=== PATIENT | female | born 1990 | race Caucasian/White ===

== ENCOUNTER 2017-09-15 10:00 | Inpatient (IN) | payer OTHER ==
[~2017-09-15] VITALS: Ht 175.3 cm; Wt 121.7 kg
[2017-09-15 10:28] VITALS: Ht 175.3 cm; Wt 121.7 kg
[2017-09-15] MEDS ORDERED: OXYTOCIN 30 UNITS/LR 500 ML IV SCH ×2 (10:30)
[2017-09-15] MEDS ORDERED: IBUPROFEN 600 MG TAB PO PRN (10:30)
[2017-09-15] MEDS ORDERED: LIDOCAINE 1% (MPF) 30 ML INJ INJ PRN (10:30)
[2017-09-15] MEDS ORDERED: HYDROCODONE/APAP (5/325) TAB PO PRN (10:30)
[2017-09-15] MEDS ORDERED: BUTORPHANOL 2 MG INJ IV PRN (10:30)
[2017-09-15] MEDS ORDERED: CARBOPROST 250 MCG INJ IM PRN (10:30)
[2017-09-15] MEDS ORDERED: METHYLERGONOVINE 0.2 MG INJ IM PRN (10:30)
[2017-09-15] MEDS ORDERED: OXYTOCIN 30 UNITS/LR 500 ML IV PRN (10:30)
[2017-09-15] MEDS ORDERED: MISOPROSTOL 200 MCG TAB PR PRN (10:30)
[2017-09-15 10:37] VITALS: BP 120/83; PULSE 64; RESP 20
[2017-09-15] MEDS: LACTATED RINGER'S 1,000 ML IV SCH ×2 (11:06→19:50)
[2017-09-15] MEDS ORDERED: MINERAL OIL LIGHT 10 ML VIAL TOP PRN (12:00)
[2017-09-15] MEDS ORDERED: LACTATED RINGER'S 1,000 ML IV PRN (12:00)
--- NOTE | 2017-09-15 12:30 | RADRPT ---
PROCEDURE: US OB. CLINICAL INDICATION: Size and dates , macrosomia TECHNIQUE: Multiple sonographic images of the pelvis and gravid uterus were obtained. The images were reviewed on a PACS workstation. COMPARISON: No prior studies are available for comparison. FINDINGS: There is a single viable intrauterine gestation. Cardiac activity is present with 144 beats per min matilda. There is a vertex presentation. The placenta is left lateral. There is no evidence for an abruption or placenta previa. Measurements were made in order to determine age. The results are as follows: BPD =9.6 cm HC =33 cm AC =35.2 cm FL =7.4 cm Estimated gestational age of approximately 38 weeks and 3 days based on ultrasound measurements. Clinical age: 40 weeks and 0 days. The estimated date of delivery is 09/26/17, based on ultrasound measurements. The EFW = 3568 g, 45.6%, based on LMP age. RPTAT: AA IMPRESSION: Single viable intrauterine gestation of approximately 38 weeks and 3 days based on ultrasound measu rements. .Gulshan Pruitt MD, Date Time Electronically viewed and signed by .Gulshan Pruitt MD, MD on 09/15/2017 12:30 .S/
[2017-09-15] MEDS: OXYTOCIN 30 UNITS/LR 500 ML IV SCH (13:01)
--- NOTE | 2017-09-15 16:10 | HP ---
Date/Time of Note Date/Time of Note DATE: 09/15/17 TIME: 16:08 OB - History Hx of Present Free Text/Dictation Admitted to 40 weeks for induction of labor Chief Complaint: None Last Menstrual Period: Dec 18, 2016 Estimated Due Date: Sep 15, 2017 : 3 Para: 1 Therapeutic : 1 Care: Good Care Ultrasounds: Normal mid trimester US Obstetrical Complications: None Medical Complications: None Past Family/Social History * Past Medical, Surgical, Family and Obstetric Histories reviewed from chart. Blood Type: O+ Rubella: immune RPR/VDRL: Negative GBS Status: Negative HBsAG: Negative OB Admission Exam Vital Signs Vital Signs Vital Signs Date Time Temp Pulse Resp B/P Pulse Ox O2 Delivery O2 Flow Rate FiO2 09/15/17 10:37 97.7 64 20 120/83 Room Air Physical Exam HEENT: WNL Heart: Rhythm Normal Lungs: Clear, Equal Abdomen: WNL Extremities: Normal Reflexes: Normal Cervical Dilatation: 2cm Effacement: 75% Station: -3 Membranes: Intact Heart Rate: 130's Accelerations: Accelerations Present Decelerations: No Decelerations Varibility: Marked Contractions on Admission: None Last 72 hours Lab Results CBC & BMP 09/15/17 11:00 OB Assessment/Plan Reason for admission: induction of labor Other Assessment: Term gestation Induction Method: per Pitocin Protocol Other plan: Min induce labor using Pitocin WANDER KNOWLES MD Sep 15, 2017 16:10
[2017-09-15] MEDS ORDERED: FENTAnyl 2MCG/ML-ROPIV 0.2% 100 ML ONE (17:59)
[2017-09-15] MEDS ORDERED: DIPHENHYDRAMINE 50 MG INJ IV PRN (19:00)
[2017-09-15] MEDS ORDERED: NALOXONE (0.4 MG/ML) INJ IV PRN (19:00)
[2017-09-15] MEDS: FENTAnyl 2MCG/ML-ROPIV 0.2% 100 ML BAG EPI SCH (19:16)
[2017-09-15] MEDS: ONDANSETRON 4 MG INJ IV PRN (19:49)
[2017-09-16] MEDS: LACTATED RINGER'S 1,000 ML IV SCH ×4 (01:03→17:00)
[2017-09-16] MEDS: FENTAnyl 2MCG/ML-ROPIV 0.2% 100 ML BAG EPI SCH ×2 (03:52→12:47)
[2017-09-16] MEDS ORDERED: DEXTROSE 5%-LR 1,000 ML IV PRN (05:30)
[2017-09-16] MEDS: OXYTOCIN 30 UNITS/LR 500 ML IV SCH (09:42)
[2017-09-16] MEDS ORDERED: MAGNESIUM SULFATE 3 GM in SOD CHLORIDE 0.9% 100 ML IVPB ONE (11:30)
[2017-09-16] MEDS: MAGNESIUM SULFATE 20 GM/500 ML 500 ML IV SCH ×3 (11:43→20:09)
[2017-09-16] MEDS: ONDANSETRON 4 MG INJ IV PRN (12:49)
[2017-09-16] MEDS ORDERED: MINERAL OIL LIGHT 10 ML VIAL TOP ONE (17:00)
--- NOTE | 2017-09-16 17:46 | LDN ---
Date/Time of Note Date/Time of Note DATE: 09/16/17 TIME: 17:43 Delivery Summary Normal spontaneous vaginal delivery of a viable over intact perineum Weeks of Gestation 40 weeks Placenta Delivered: Spontaneously, Intact & Complete Meconium: Light Episiotomy: No Perineal laceration: 0 Anesthesia type: Epidural Estimated blood loss: 300 Sponge & Needle done & correct: Yes All needle counts correct: Yes Any foreign bodies felt in the: No Problems: Infant Delivery Information Sex Infant Sex: male Apgars 1 Minute: 9 5 Minute: 9 Suctioning Nose & mouth suctioned at mattie: Yes Delee suction performed: No Umbilical Cord Umbilical cord with: 3 Vessels Cord presentations: nuchal cord Nuchal cord present X: 1 Cord Blood was obtained: Yes Mother & Baby Disposition Disposition Mom & Baby to Maternity; Good: Yes (Mother and baby were recovered in good condition) Mom transferred to: Other (Maternity) Baby to NICU: No WANDER KNOWLES MD Sep 16, 2017 17:46
[2017-09-16] MEDS: LACTATED RINGER'S 1,000 ML IV* SCH (20:09)
[2017-09-16] MEDS ORDERED: HYDROCODONE/APAP (5/325) TAB PO PRN ×2 (20:30)
[2017-09-16] MEDS ORDERED: BENZOCAINE 20% 56 ML SPRAY TOP PRN (20:30)
[2017-09-16] MEDS ORDERED: LANOLIN 7 GM TUBE TOP PRN (20:30)
[2017-09-16] MEDS ORDERED: OXYTOCIN 30 UNITS/LR 500 ML IV PRN (20:30)
[2017-09-16] MEDS ORDERED: ZOLPIDEM 5 MG TAB PO PRN (20:30)
[2017-09-16] MEDS ORDERED: MISOPROSTOL 200 MCG TAB PR PRN (20:30)
[2017-09-16] MEDS ORDERED: WITCH HAZEL/GLYCERIN PAD PR PRN (20:30)
[2017-09-16] MEDS ORDERED: CARBOPROST 250 MCG INJ IM PRN (20:30)
[2017-09-16] MEDS ORDERED: METHYLERGONOVINE 0.2 MG INJ IM PRN (20:30)
[2017-09-16] MEDS ORDERED: DIBUCAINE 1% 30 GM OINT PR PRN (20:30)
[2017-09-16] MEDS: SENNA/DOCUSATE NA (8.6MG/50MG) TAB PO SCH (21:00)
[2017-09-16] MEDS: MAGNESIUM HYDROXIDE 30ML CUP PO SCH (21:00)
[2017-09-16 21:30] VITALS: BP 137/84; PULSE 66; RESP 20
[2017-09-16 22:30] VITALS: BP 138/64; PULSE 81; RESP 20
[2017-09-16 23:50] VITALS: BP 119/72; PULSE 73; RESP 18
[2017-09-17] VITALS (18 sets, daily range): BP systolic 114–150; BP diastolic 64–90; PULSE 51–70; RESP 18–20
[2017-09-17] MEDS: CEPHALEXIN 500 MG CAP PO SCH ×5 (01:23→23:42)
[2017-09-17] MEDS: LACTATED RINGER'S 1,000 ML IV* SCH ×3 (05:17→15:13)
[2017-09-17] MEDS: IBUPROFEN 600 MG TAB PO SCH ×4 (05:35→23:42)
[2017-09-17] MEDS: SENNA/DOCUSATE NA (8.6MG/50MG) TAB PO SCH ×2 (10:17→21:15)
[2017-09-17] MEDS: MAGNESIUM HYDROXIDE 30ML CUP PO SCH ×2 (10:17→21:15)
[2017-09-17] MEDS: MAGNESIUM SULFATE 20 GM/500 ML 500 ML IV SCH (15:12)
--- NOTE | 2017-09-17 17:51 | PD.PPDC ---
[employer] Discharge Instruction Provider Information Physician Information 26-year-old female had vaginal delivery Diagnosis Final Diagnosis: Status post vaginal delivery Condition Patient Condition: Good Diet Diet: Resume Regular Diet Activity/Restrictions Activity: Normal Activity May Shower Restrictions: Nothing in the Vagina Return to Work or School: Nov 02, 2017 Follow-up Follow-up with Physician: 4, Week/Weeks Return to clinic for OB Instructions: Breast Tenderness Depression Blurried Vision Headache Comment: Pelvic rest 6 weeks WANDER KNOWLES MD Sep 17, 2017 17:51
--- NOTE | 2017-09-17 17:51 | DS ---
Date/Time of Note Date/Time of Note Home next day DATE: 09/17/17 TIME: 17:50 Obstetrical Discharge Record Final Diagnosis Final Diagnosis: Term delivered Other Final Diagnosis Status post vaginal delivery Vaginal Delivery Obstetrical Delivery: Spontaneous Complications Augmentation: Yes Condition on Discharge Physical Assessment Last Vitals: See nurse's notes Voiding: Yes Bowel Movement: Yes Breast: Soft, non-tender, Filling Fundus: Firm Abdomen and Incision: Abdomen is soft bowel sounds present Fundus is firm bellybutton Calf Tenderness: No Patient Condition: Good WANDER KNOWLES MD Sep 17, 2017 17:51
[2017-09-17] MEDS ORDERED: IBUP-1542 PO (17:53)
[2017-09-18 04:00] VITALS: BP 121/82; PULSE 61; RESP 19
[2017-09-18] MEDS: LACTATED RINGER'S 1,000 ML IV* SCH (04:09)
[2017-09-18] MEDS: CEPHALEXIN 500 MG CAP PO SCH ×2 (05:57→11:49)
[2017-09-18] MEDS: IBUPROFEN 600 MG TAB PO SCH ×2 (05:57→11:49)
[2017-09-18 07:45] VITALS: BP 129/82; PULSE 68; RESP 19
[2017-09-18] MEDS: SENNA/DOCUSATE NA (8.6MG/50MG) TAB PO SCH (09:00)
[2017-09-18] MEDS ORDERED: VARICELLA VACCINE LIVE/PF 1,350 UNIT/0.5 ML ML SC* ONE (09:00)
[2017-09-18] MEDS ORDERED: DIPHTH/TET/ACEL PERTUSS (ADULT) 0.5 ML VIAL IM* ONE (09:00)
[2017-09-18] MEDS: MAGNESIUM HYDROXIDE 30ML CUP PO SCH (09:00)
[2017-09-18] MEDS ORDERED: MEASLES,MUMPS,RUBELLA VACCINE INJ SC* ONE (09:00)
== END 2017-09-18 15:00 | disposition home or self-care (01) | DRG 775 ==
LOC: L-D 10:09 → PP1 09-16 21:33
PROVIDERS: ADMIT Obstetrics & Gynecology; ATTEND Obstetrics & Gynecology
PROC: 10E0XZZ Delivery of Products of Conception, External Approach (ICD-10-PCS; principal; 2017-09-16)
PROC: 3E0P3VZ Introduction of Hormone into Female Reproductive, Percutaneous Approach (ICD-10-PCS; 2017-09-16)
DX: O80 Encounter for full-term uncomplicated delivery (principal); Z37.0 Single live birth; Z3A.40 40 weeks gestation of pregnancy
CPT/HCPCS: 62319; 76815; 80053; 81001; 83735; 84560; 85025; 85384; 85610; 85730; 86592; 86900; 86901; 87340; 90715; 90716; J2405; J2590; J3010; J3475; J7120